=== PATIENT | female | born 1985 | race Caucasian/White ===

== ENCOUNTER 2020-03-26 17:58 | Emergency (ER) | payer BC, SELFPAY ==
[2020-03-26] MEDS ORDERED: Famotidine/PF 20 mg/2ml Vial ONE (18:09)
--- NOTE | 2020-04-02 12:44 | EKG ---
Test Reason : Blood Pressure : / mmHG Vent. Rate : 080 BPM Atrial Rate : 080 BPM P-R Int : 134 ms QRS Dur : 100 ms QT Int : 436 ms P-R-T Axes : 024 070 045 degrees QTc Int : 502 ms Normal sinus rhythm Prolonged QT Abnormal ECG Confirmed by SHLOMO GRAYSON M.D. ([id number]), general expeditor SAHRA GARCIA ([id number]) on 04/02/2020 12:44:00 PM Referred By: Confirmed By:SHLOMO GRAYSON M.D.
== END 2020-03-26 19:00 | disposition home or self-care (01) ==
LOC: ERS 17:58
DX: R06.00 Dyspnea, unspecified (principal); R94.31 Abnormal electrocardiogram [ECG] [EKG]; G43.909 Migraine, unspecified, not intractable, without status migrainosus; F17.210 Nicotine dependence, cigarettes, uncomplicated
CPT/HCPCS: 93005; 96374; S0028

== ENCOUNTER 2021-09-26 12:40 | Outpatient (CLI) | payer BC | END 2021-09-26 12:41 | disposition home or self-care (01) | LOC: EEG 12:40 | PROVIDERS: ATTEND Psychiatry & Neurology Neurology | DX: R55 Syncope and collapse (principal) | CPT/HCPCS: 95816 ==

== ENCOUNTER 2021-10-09 08:23 | Outpatient (CLI) | payer BC ==
[2021-10-09] MEDS ORDERED: Magnevist 469MG/ML 20 ML VIAL ONE (11:12)
== END 2021-10-09 08:24 | disposition home or self-care (01) ==
LOC: TBSIIMAG 08:23
PROVIDERS: ATTEND Psychiatry & Neurology Neurology
DX: R55 Syncope and collapse (principal)
CPT/HCPCS: 70553; A9579

== ENCOUNTER 2021-12-08 10:58 | Outpatient (CLI) | payer OTHER | END 2021-12-08 10:59 | disposition home or self-care (01) | LOC: SCSRAD 10:58 | PROVIDERS: ATTEND Physician Assistant | DX: M25.522 Pain in left elbow (principal) ==

== ENCOUNTER 2022-01-08 09:52 | Outpatient (CLI) | payer OTHER | END 2022-01-08 09:53 | disposition home or self-care (01) | LOC: SCSMRI 09:52 | PROVIDERS: ATTEND Orthopaedic Surgery | DX: G56.22 Lesion of ulnar nerve, left upper limb (principal); R93.7 Abnormal findings on diagnostic imaging of other parts of musculoskeletal system ==

== ENCOUNTER 2022-01-19 12:45 | Outpatient (CLI) | payer OTHER ==
[2022-01-19 13:41] LABS: #Eosinphils 0.1 10x3/uL (0.0-0.5); #Monocytes 0.5 10x3/uL (0.0-1.1); #Neutrophils 2.8 10x3/uL (1.5-8.4); %Basophils 0.6 % (0.0-2.0); %Eosinophils 1.7 % (0.0-6.0); %Lymphocytes 36.4 % (18.0-47.0); %Monocytes 9.2 % (0.0-10.0); %Neutrophils 51.9 % (40.0-75.0); Hemoglobin 13.5 g/dL (12.0-15.5); Mean Corpuscular HGB CONC 33.7 g/dL (32.0-36.0); Mean Corpuscular Hemoglobin 32.1 pg (27.0-33.0); Mean Corpuscular Volume 95.2 fl (81.6-98.3); Mean Platelet Volume 10.7 fl (7.4-10.4); Platelet Count 225 10x3/uL (150-450); RBC Distribution Width 12.5 % (11.5-14.5); Red Blood Cell (RBC) Count 4.21 10x6/uL (3.90-5.03); White Blood Cell (WBC) Count 5.3 10x3/uL (3.5-10.5)
[2022-01-20 00:06] LABS: SARS-CoV-2 PCR by NAA Not Detected (NotDetected)
== END 2022-01-19 12:46 | disposition home or self-care (01) ==
LOC: LABBT 12:45
PROVIDERS: ATTEND Orthopaedic Surgery
DX: Z01.812 Encounter for preprocedural laboratory examination (principal); G56.22 Lesion of ulnar nerve, left upper limb; M24.022 Loose body in left elbow; Z20.822 Contact with and (suspected) exposure to COVID-19
CPT/HCPCS: 85025; U0003; U0005